=== PATIENT | male | born 1980 | race Caucasian/White ===

== ENCOUNTER 2017-04-23 08:14 | Emergency (ER) | payer OTHER ==
[~2017-04-23] VITALS: Ht 172.7 cm; Wt 86.4 kg
[~2017-04-23 08:14] MED LIST: MORP30TA91 PO; OMEP40CA36 PO
[2017-04-23 08:22] VITALS: BP 113/82; PULSE 79; RESP 18; O2SAT 99
--- NOTE | 2017-04-23 08:28 | ED.REPORT ---
HPI-Chest Pain Under 40 Date of Service Apr 23, 2017 ED Provider: Keven Holden MD Patient is a 37 year old male who presents to the ED complaining of L sided chest pain that radiates down his side onset 2 days ago. He reports moving boxes recently, during which he fell. His pain waxes and wanes, is better with rest, and worse with inspiration or movement. He rates the pain a 2/10 in severity currently but an 8/10 at its worst. Associated symptoms include SOB, diaphoresis, and productive cough with clear phlegm. He denies nausea, vomiting , fevers, lower extremity edema, or any other symptoms. Patient took Motrin for his pain. He quit smoking a year ago. He does not have a history of blood clots. Patient reports being immobile during a drive from [place] back to [place]. Nursing Notes Stated Complaint: CHEST PAIN Chief Complaint: Chest Pain Nursing Notes Reviewed: Yes ([employer], [employer] not reconciled) Allergies: Coded Allergies: No Known Allergies (Verified Allergy, Unknown, 04/04/15) Scheduled Morphine Sulfate CR (Morphine Sulfate CR) 30 Mg Tablet 15 MG PO DAILY Omeprazole (Omeprazole) 40 Mg Capsule.dr 40 MG PO DAILY Scheduled PRN Hydrocodone-Acetaminophen 5-325 mg (Hydrocodone-Acetaminophen 5-325 mg) 1 Each Tablet 1 TABLET PO Q4-6H PRN PRN For Pain Ibuprofen (Ibuprofen) 400 Mg Tablet 400-800 MG PO TID PRN PRN For Pain General Time Seen by MD: 08:27 Chief Complaint Chest pain Hx Obtained From: Patient Arrived By: Walk-in Sudden in Onset?: Yes Onset Occurred: 2 days ago Symptom Duration: Waxes and wanes Location: : Chest left Quality: Painful Severity: Current: Pain level 2 out of 10 Severity: Maximum: Pain level 8 out of 10 Risk Factors )( CAD Risk Stratification No Diabetes mellitus, No Hyperlipidemia, No Hypertension, No Known CAD Risk factors reviewed )( PE Risk Stratification ImmobilizationNo , No , No Previous DVT, No Previous PE Risk factors reviewed Past Medical History Past Medical History h/o mild gastritis chronic back pain PTSD GERD Past Surgical History EGD 03/2015 mild gastritis Smoking History Former Smoker Social History Other Social History: Good social support, Ambulatory Status Independent Review of Systems Constitutional: Denies: Fever Respiratory: Reports: Prod cough, clear, Shortness of breath Cardiovascular: Reports: Chest pain, Denies: Edema GI: Denies: Nausea, Vomiting Skin: Reports Diaphoresis Complete sys rev & neg: except as marked. Physical Exam Initial Vital Signs Vital Signs (First) Date Time Temp Pulse Resp B/P Pulse Ox O2 Delivery O2 Flow Rate FiO2 04/23/17 08:22 36.7 79 18 113/82 99 Room Air Initial VS: Reviewed, Vital signs normal Head / Eyes: Atraumatic, Normocephalic Neck: Supple, Full range of motion Neurologic: Alert, Oriented, Nonfocal Psychiatric: Mood/affect normal, Behavior normal, Normal thought content General/Constitutional: Awake, Alert Respiratory / Chest: No respiratory distress Slightly diminished breath sounds. No chest wall tenderness Cardiovascular: Peripheral circulation NL Lower Extremity / Pelvis / MS: Atraumatic, Inspection NL, No swelling, Neurologic intact, Vascular intact No signs DVT Skin: Color NL, No rash, Warm, Dry, Intact Interpretation & Diagnostics Lab Results Interpretation Result Diagram: 04/23/17 0839 04/23/17 0839 Test 04/23/17 08:39 White Blood Count 7.0th/mm3 (3.8-10.1) Red Blood Count 4.76mil/mm3 (4.40-5.80) Hemoglobin 15.7g/dL (13.8-17.2) Hematocrit 43.4% (41.0-50.0) Mean Corpuscular Volume 91.2fL (81-100) Mean Corpuscular Hemoglobin 33.0pg (27.0-35.0) Mean Corpuscular Hemoglobin Concent 36.2% (32.0-37.0) Red Cell Distribution Width 12.8% (12.3-15.4) Platelet Count 233bil/L (150-400) Neutrophils (%) (Auto) 54.0% (40-74) Lymphocytes (%) (Auto) 26.2% (14-46) Monocytes (%) (Auto) 13.5% (4-12) Eosinophils (%) (Auto) 5.8% (0-5) Basophils (%) (Auto) 0.4% (0-3) D-Dimer 0.50mg/L FEU (<0.50) Sodium Level 138mEq/L (134-144) Potassium Level 3.9mEq/L (3.5-5.2) Chloride Level 102mEq/L (97-108) Carbon Dioxide Level 22mmol/L (18-29) Blood Urea Nitrogen 12mg/dL (6-20) Creatinine 1.01mg/dL (0.76-1.27) Estimat Glomerular Filtration Rate 89mL/min (>59) Glucose Level 99mg/dL (60-99) Calcium Level 8.8mg/dL (8.5-10.1) Magnesium Level 1.9mg/dL (1.6-2.6) Total Bilirubin 0.7mg/dL (0.0-1.2) Aspartate Amino Transf (AST/SGOT) 25U/L (0-50) Alanine Aminotransferase (ALT/SGPT) 24U/L (0-44) Alkaline Phosphatase 82U/L (25-150) Troponin T 0.010ug/L (0.0-0.011) Total Protein 6.9g/dL (6.4-8.4) Albumin 4.1g/dL (3.4-5.0) Lab Results Interpretation: CBC and CMP normal Troponin negative just after 2 days of continuous symptoms, serial markers not indicated D-dimer negative, and this case indicating no need for further workup of PE/DVT ECG Interpretation ECG Interpretation: Sinus rate 72 no ischemia Time: 08:59 Interpreted by: ED physician X-Ray Chest Interpretation Chest Xray Interpretation: IMPRESSION: Negative chest. No acute cardiopulmonary process is evident. Dictated by: Jesus Horton M.D. on 04/23/2017 at 8:18 Approved by: Jesus Horton M.D. on 04/23/2017 at 8:19 View: Portable, 1 view Interpretation / Wet Read by: Interpret - Radiologist Re-Eval/Medical Decision Med Decision/Clinical Course This is a healthy 37M who presents complaining of 2 days of left-sided pleuritic chest pain following a drive back from [place] He does note that he did move some heavy boxes, said he noted to the nurse there is a possible injury-but he had no symptoms at the time of the actual maneuvering. Reports pain is worse with deep breath, or movement. He has no fever, a chronic cough that is not really changed over the past year since he stopped smoking, and no prior history of cardiopulmonary disease. Aside from the long travel history, he has no risk factors for DVT/PE. His symptoms were last worse last night, but he told his that if they had resolved this morning he come to get checked out. He has normal vitals, his known disc stress, and has a normal physical exam. EKG, x-ray, and labs are normal height fall including normal troponin, and normal d-dimer. His symptoms are atypical, low risk, for primary cardiac ischemia-A given 2 days of constant symptoms prior to auditory testing today, additional testing is not indicated. His d-dimer was negative. At this point dangerous etiologies such as pulmonary embolus, pneumothorax, pneumonia has not been identified. Reassurance provided. Patient's been initiated on NSAIDs. A few hydrocodone was provided for when necessary use. A work note was also provided. Routine and Return precautions reviewed. Patient is discharged in good condition Source of Hx: Old records Re-Evaluation/Progress : Time of Eval: 10:03 Re-Evaluation/Progress Note: Rechecked patient who is doing well. Discussed lab and imaging results. Discussed plan for discharge. Patient understands and agrees with plan. All questions addressed at this time. Differential Diagnosis: Positive: Chest pain, acute, Pleurisy, Negative: Acute coronary syndrome, Acute myocardial infarct, Congestive heart failure, Dysrhythmia, Esophageal rupture, Gun shot wound chest, Nadya- Ralph syndrome, Myocardial infarction, Pneumomediastinum, Pneumonia, Pneumothorax, Pulmonary edema, Pulmonary embolism, Rib fracture Counseled Regarding: Diagnosis, Lab results, Need for follow-up, When/why to return to ED Discharge & Departure Primary Impression: Pleuritic chest pain Disposition: Home Discharge Condition All VS Reviewed: Yes Condition: Stable Additional Instructions: 1. A dangerous cause of the pleuritic chest pain was not identified. 2. Your EKG, Xray, and blood tests were normal. 3. We theorize that this type of pleuritic discomfort is from inflammation along the pleura of the lung. While very painful, it does resolve with time. 4. Take ibuprofen 400-800mg up to three times a day. (This medicine also works to resolve the inflammation) 5. If needed for more severe pain take hydrocodone/APAP 5/325 1-2 tabs up to every 6 hours. Referrals: [facility] (PC[facility]) Scribe Attestation Portions of this note were transcribed by Naida Mcginnis. I, Dr. Holden personally performed the history, physical exam and medical decision-making; I reviewed and confirmed the accuracy of the information in the transcribed note. Signed by: Rama Godwin, 04/23/17 copies to: [facility] Keven Holden MD Apr 23, 2017 08:28 NAIDA MCGINNIS Apr 23, 2017 08:44
[2017-04-23 08:47] LABS: BASOPHILS % (AUTO) 0.4 % (0-3); EOSINOPHILS % (AUTO) 5.8 % (0-5); MONOCYTES % (AUTO) 13.5 % (4-12); Mean Corpuscular Volume 91.2 fL (81-100); Platelet Count 233 bil/L (150-400)
[2017-04-23 09:13] LABS: TROPONIN T 0.01 ug/L (0.0-0.011)
--- NOTE | 2017-04-23 09:21 | DRSVH ---
PROCEDURE: X-RAY CHEST ONE VIEW, PORTABLE ([id number]) INDICATIONS: CHEST PAIN TECHNIQUE: One view of the chest was acquired. COMPARISON: None. FINDINGS: Surgical changes and devices: None. Lungs and pleura: No pleural effusions or pneumothorax. Lungs are clear. Mediastinum: Mediastinal contours appear normal. Heart size is normal. Bones and chest wall: No suspicious bony lesions. Overlying soft tissues appear unremarkable. IMPRESSION: Negative chest. No acute cardiopulmonary process is evident. Dictated by: Jesus Horton M.D. on 04/23/2017 at 8:18 Approved by: Jesus Horton M.D. on 04/23/2017 at 8:19
[2017-04-23 09:24] LABS: Magnesium 1.9 mg/dL (1.6-2.6)
[2017-04-23] MEDS ORDERED: IBUP400T22 PO (10:19)
[2017-04-23] MEDS ORDERED: HYDR-4003 PO (10:19)
[2017-04-23 10:34] VITALS: BP 119/60; PULSE 69; RESP 20; O2SAT 98
== END 2017-04-23 10:35 | disposition home or self-care (01) ==
LOC: SED 08:14
DX: R07.81 Pleurodynia (principal); W18.39XA Other fall on same level, initial encounter; Y93.89 Activity, other specified; Y92.89 Other specified places as the place of occurrence of the external cause; Y99.8 Other external cause status; R06.02 Shortness of breath; R61 Generalized hyperhidrosis; R05 Cough; K21.9 Gastro-esophageal reflux disease without esophagitis; Z98.890 Other specified postprocedural states; Z87.891 Personal history of nicotine dependence
CPT/HCPCS: 36415; 71010; 80053; 83735; 84484; 85025; 85378; 93005; 96374; 99285; J1885